=== PATIENT | male | born 1980 | race Caucasian/White ===

== ENCOUNTER 2023-04-14 14:20 | Outpatient (CLI) | payer OTHER | END 2023-04-14 14:31 | disposition home or self-care (01) | LOC: RAD 14:20 | PROVIDERS: ATTEND Orthopaedic Surgery | DX: M25.561 Pain in right knee (principal) ==

== ENCOUNTER 2023-05-11 09:25 | Outpatient (CLI) | payer OTHER ==
[~2023-05-11] VITALS: Ht 180.3 cm; Wt 88.0 kg
[2023-05-11 10:33] LABS: HEMATOCRIT 41.7 % (39.0-48.0); HEMOGLOBIN 14.7 g/dL (13-16.00); MEAN CORPUSCULAR HEMOGLOBIN 29.9 pg (27.00-32.0); MEAN CORPUSCULAR HGB CONC 35.2 g/dl (32.0-36.0); PLATELET COUNT 254 K/uL (150-450); RED BLOOD COUNT 4.91 M/uL (4.00-6.00); RED CELL DISTRIBUTION WIDTH 13.6 % (11.5-14.5)
[2023-05-11 10:58] LABS: URINE APPEARANCE Clear; URINE BILIRRUBIN Negative (NEGATIVE); URINE BLOOD Negative; URINE COLOR Yellow; URINE GLUCOSE Negative (NEGATIVE); URINE LEUKOCYTE Negative; URINE NITRATE Negative; URINE PROTEIN Negative (NEGATIVE); URINE UROBILINOGEN 0.2 E.U./dl
[2023-05-11 11:01] LABS: BILIRUBIN TOTAL 0.34 mg/dL (0.3-1.2); CALCIUM 9.6 mg/dL (8.5-10.1); CREATININE SERUM 1.06 mg/dL (0.70-1.30); GFR 76.25; GLOBULINA 3.8 G/DL (2.4-3.5); POTASSIUM 4.48 mEq/L (3.5-5.1); TOTAL PROTEIN 7.8 gm/dL (6.4-8.2)
[2023-05-11 11:02] LABS: URINE BACTERIA 35.2 uL (0.0-1933); URINE WBC 2.3 uL (0.0-23.2)
[2023-05-11 11:11] LABS: COL EPI 99 SECONDS (82-175)
[2023-05-11 11:14] LABS: INR 0.98; PARTIAL THROMBOPLASTIN TIME 27.6 SECONDS (22.0-34.0); PROTHROMBIN TIME 10.3 SECONDS (9.0-11.5)
== END 2023-05-11 09:26 | disposition home or self-care (01) ==
LOC: RAD 09:25
PROVIDERS: ATTEND Orthopaedic Surgery
DX: D64.9 Anemia, unspecified (principal); D68.8 Other specified coagulation defects; N39.0 Urinary tract infection, site not specified; E11.9 Type 2 diabetes mellitus without complications; E88.89 Other specified metabolic disorders; I10 Essential (primary) hypertension; Z20.822 Contact with and (suspected) exposure to COVID-19; Z76.89 Persons encountering health services in other specified circumstances

== ENCOUNTER 2023-05-17 06:16 | Day surgery (SDC) | payer OTHER ==
[2023-05-17] MEDS ORDERED: BUPIVACAINE HCL/PF 0.5% 30ML ML ONE ×2 (07:06→09:35)
[2023-05-17] MEDS ORDERED: EPINEPHRINE HCL/PF 1 MG/ML AMPUL ONE (07:09)
[2023-05-17] MEDS ORDERED: METHYLPREDNISOLONE ACETATE 80 MG/ML VIAL ONE (07:11)
[2023-05-17] MEDS ORDERED: CEFAZOLIN SODIUM 1,000 MG VIAL ONE (07:22)
[2023-05-17] MEDS ORDERED: LIDOCAINE HCL/EPINEPHRINE 10MG/ML 1% 50ML IJ ONE ×3 (07:49→12:00)
[2023-05-17] MEDS ORDERED: ISOPROPYL ALCOHOL 30 ML OUNCE TOP ONE (09:15)
[2023-05-17] MEDS ORDERED: CEFAZOLIN SODIUM 1,000 MG VIAL IV SCH (09:15)
[2023-05-17] MEDS ORDERED: BUPIVACAINE HCL/PF 0.5% 30ML ML IJ ONE (12:00)
[2023-05-19] MEDS ORDERED: METHYLPREDNISOLONE ACETATE 80 MG/ML VIAL IU ONE (08:15)
== END 2023-05-17 17:00 | disposition home or self-care (01) ==
LOC: CIR.AMB 06:16
PROVIDERS: ATTEND Orthopaedic Surgery
DX: S83.241A Other tear of medial meniscus, current injury, right knee, initial encounter (principal); M17.11 Unilateral primary osteoarthritis, right knee; M65.9 Synovitis and tenosynovitis, unspecified; Z20.822 Contact with and (suspected) exposure to COVID-19